=== PATIENT | female | born 1955 | race Caucasian/White ===

== ENCOUNTER 2020-04-29 13:19 | Outpatient (CLI) | payer MEDICARE | END 2020-04-29 13:20 | disposition home or self-care (01) | LOC: COV 13:19 | PROVIDERS: ATTEND Family Medicine | DX: R05 Cough (principal); J02.9 Acute pharyngitis, unspecified; Z20.828 Contact with and (suspected) exposure to other viral communicable diseases ==

== ENCOUNTER 2022-03-23 12:11 | Outpatient (CLI) | payer MEDICARE ==
--- NOTE | 2022-03-23 14:12 | XRAY Report ---
PROCEDURE: Hand 3 View RT INDICATIONS: CONTUSION OF R HAND TECHNIQUE: 3 views of the hand(s) acquired. COMPARISON: None FINDINGS: Bones: No fractures or dislocations. Degenerative changes of the interphalangeal joints. No erosion s. No suspicious bony lesions. Soft tissues: No suspicious soft tissue calcifications. IMPRESSION: 1. No acute abnormality. 2. Degenerative changes of the interphalangeal joints. No erosions. Reviewed by: Rhett Frost on 03/23/2022 2:11 PM PDT Approved by: Rhett Frost on 03/23/2022 2:11 PM PDT Station ID: [id number]
== END 2022-03-23 23:59 | disposition home or self-care (01) ==
LOC: DI.N 12:11
PROVIDERS: ATTEND Emergency Medicine
DX: S60.221A Contusion of right hand, initial encounter (principal); M19.041 Primary osteoarthritis, right hand

== ENCOUNTER 2022-11-15 15:47 | Outpatient (CLI) | payer MEDICARE ==
--- NOTE | 2022-11-15 18:03 | XRAY Report ---
PROCEDURE: Knee 4 View RT INDICATIONS: PAIN IN RIGHT KNEE TECHNIQUE: 4 views of the right knee(s) were acquired. COMPARISON: None. FINDINGS: Bones: No fractures or dislocations. Mild tricompartmental osteoarthritis is seen most notably in me dial femoral tibial compartment. No patella subluxation. No suspicious bony lesions. Soft tissues: No joint effusion. No suspicious soft tissue calcifications. IMPRESSION: Mild tricompartmental osteoarthritis. No fracture or dislocation. No joint effusion. Reviewed by: Rich Leung MD on 11/15/2022 6:02 PM PDT Approved by: Rich Leung MD on 11/15/2022 6:02 PM PDT Station ID: [id number]
== END 2022-11-15 15:48 | disposition home or self-care (01) ==
LOC: DI 15:47
PROVIDERS: ATTEND Registered Nurse
DX: M17.11 Unilateral primary osteoarthritis, right knee (principal)

== ENCOUNTER 2023-05-15 11:57 | Outpatient (CLI) | payer MEDICARE ==
--- NOTE | 2023-05-15 13:23 | XRAY Report ---
PROCEDURE: Foot 3 View LT INDICATIONS: CONTUSION OF LEFT FOOT, INITIAL TECHNIQUE: 3 views of the foot were acquired. COMPARISON: None. FINDINGS: Bones: No fractures or dislocations. No suspicious bony lesions. Soft tissues: No suspicious soft tissue calcifications or masses. IMPRESSION: No acute fracture. No osseous lesion. If symptoms and/or clinical suspicion for patholog y continue, further assessment with repeat plain films, or advanced imaging (e.g., CT, MRI, or bone s can) is recommended for further assessment. Reviewed by: Omar Love MD on 05/15/2023 1:22 PM PDT Approved by: Omar Love MD on 05/15/2023 1:22 PM PDT Station ID: [id number]
== END 2023-05-15 11:58 | disposition home or self-care (01) ==
LOC: DI 11:57
PROVIDERS: ATTEND Physician Assistant Medical
DX: S90.32XA Contusion of left foot, initial encounter (principal)